=== PATIENT | male | born 1980 | race Caucasian/White ===

== ENCOUNTER 2021-11-05 20:52 | Emergency (ER) | payer OTHER, SELFPAY ==
[2021-11-05 21:34] VITALS: BP 188/74; PULSE 81; RESP 16; TEMP 37; O2SAT 99; BMI 41.7
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
== END 2021-11-06 02:13 | disposition home or self-care (01) ==
PROVIDERS: Emergency Provider Internal Medicine
DX: M54.50 Low back pain, unspecified (principal); Z79.899 Other long term (current) drug therapy
CPT/HCPCS: 99282; 99283